=== PATIENT | female | born 1985 | race African-American/Black ===

== ENCOUNTER 2022-09-09 14:43 | Emergency (ER) | payer OTHER, SELFPAY ==
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
[2022-09-09 14:47] VITALS: BP 137/84; PULSE 96; RESP 20; BMI 33.4
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
[2022-09-09 15:11] LABS: UPreg QC Valid YES
[2022-09-09 15:13] LABS: Urine Pregnancy NEGATIVE (NEGATIVE)
[2022-09-09] MEDS: Acetaminophen 325 MG TABLET 975 MG PO (15:55)
== END 2022-09-09 18:10 | disposition home or self-care (01) ==
PROVIDERS: Physician Assistant; Emergency Provider Emergency Medicine; PCP Internal Medicine
DX: S06.0X0A Concussion without loss of consciousness, initial encounter (principal); Y04.2XXA Assault by strike against or bumped into by another person, initial encounter; Y93.F9 Activity, other caregiving; Y92.531 Health care provider office as the place of occurrence of the external cause; Y99.0 Civilian activity done for income or pay
CPT/HCPCS: 70450; 70486; 81025; 99284